=== PATIENT | male | born 1980 | race American Indian/Alaskan Native ===

== ENCOUNTER 2017-12-29 23:38 | Emergency (ER) | payer OTHER ==
[2017-12-30] MEDS ORDERED: MOTRIN PO ONE (00:39)
[2017-12-30] MEDS ORDERED: MOTRIN ONE (00:41)
--- NOTE | 2017-12-30 01:17 | XRay Report ---
FINAL REPORT EXAM: XR SPINE CERVICAL 2-3V HISTORY: Neck pain TECHNIQUE: Three views of the cervical spine: AP, lateral and open mouth odontoid views. PRIORS: None. FINDINGS: There is no radiographic evidence of acute fracture or subluxation. Mild uncovertebral hypertrophic changes at C3-C4 and C4-C5. No significant intervertebral disc height loss.. Osseous mineralization is normal. Mild straightening of the cervical lordosis. IMPRESSION: No acute osseous abnormalities. Mild loss of the usual cervical lordosis which may be on the basis of positioning or muscle spasm. Comment: If clinical concern for fracture, consider CT for further evaluation.
--- NOTE | 2017-12-30 01:21 | XRay Report ---
FINAL REPORT EXAM: XR SPINE LUMBOSACRAL 2-3V HISTORY: lower back pain TECHNIQUE: Three views of the lumbar spine: AP, lateral and coned-down lateral views of the lumbosacral junction. PRIORS: None. FINDINGS: There is no radiographic evidence of acute fracture or subluxation. Mild endplate degenerative changes at T12-L1 and L1-L2. Mild convex right lumbar curvature. Sacroiliac joints patent. No sclerosis or erosions. Nonobstructive bowel gas pattern. IMPRESSION: Mild lumbar degenerative changes, no acute osseous abnormality or vertebral body height loss identified.
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
[2017-12-30 05:29] VITALS: BP 130/83
== END 2017-12-30 05:30 | disposition home or self-care (01) ==
LOC: ED 23:38
DX: S16.1XXA Strain of muscle, fascia and tendon at neck level, initial encounter (principal); M54.5 Low back pain; V89.2XXA Person injured in unspecified motor-vehicle accident, traffic, initial encounter; Y93.89 Activity, other specified; Y92.89 Other specified places as the place of occurrence of the external cause; Y99.8 Other external cause status
CPT/HCPCS: 72040; 72100; 99283